=== PATIENT | male | born 1930 | race Caucasian/White ===

== ENCOUNTER 2016-04-29 15:03 | Inpatient (IN) | payer MEDICARE ==
[2016-04-29 15:35] LABS: AUTOMATED BASOPHIL 0.9 % (0-2); AUTOMATED EOSINOPHIL 3.2 % (0-5); AUTOMATED LYMPH 16.6 % (17-44); AUTOMATED MONOCYTE 11.4 % (3-10); AUTOMATED NEUTROPHIL 67.9 % (45-76); MPV 8.2 fL (7.4-10.4)
[2016-04-29 15:54] LABS: BLOOD UREA NITROGEN 13 MG/DL (9-20); CALCULATED OSMOLALITY 256 MOs/Kg (270-290); CHLORIDE 98 mEq/L (98-107); GLUCOSE 103 MG/DL (70-99); SODIUM LEVEL 133 mEq/L (137-146)
--- NOTE | 2016-04-29 16:06 | DIRPT ---
CLINICAL DATA: 85-year-old male with right hip pain after falling while attempting to sit down in a chair at his home EXAM: RIGHT HIP (WITH PELVIS) 2-3 VIEWS COMPARISON: Concurrently obtained radiographs of the right knee FINDINGS: There is no evidence of hip fracture or dislocation. There is no evidence of arthropathy or other focal bone abnormality. Numerous surgical clips present over the region of the prostate gland and bilateral pelvic sidewalls. IMPRESSION: Negative. Electronically Signed By: Palomo Sandoval M.D. On: 04/29/2016 16:04
--- NOTE | 2016-04-29 16:09 | DIRPT ---
CLINICAL DATA: Fell at home 2 days ago while trying to sit down on a chair. Right knee pain with limited range of motion. Initial encounter. EXAM: RIGHT KNEE - COMPLETE 4+ VIEW COMPARISON: None. FINDINGS: No acute fracture, dislocation, or knee joint effusion is identified. There is mild medial compartment joint space narrowing. No lytic or blastic osseous lesion is identified. Vascular calcification is noted. IMPRESSION: No acute osseous abnormality identified. Electronically Signed By: Azam Corrales M.D. On: 04/29/2016 16:07
--- NOTE | 2016-04-29 17:31 | EDPRACDOC ---
- General Chief Complaint: Hip Pain Stated Complaint: FALL Time Seen by Provider: 04/29/16 15:09 Information Source: Patient - History of Present Illness Onset: 2 days Pain Severity: Reports: Moderate Injuries/Pain Location: Reports: head, lower extremity (RIGHT HIP) Reason for Fall: Reports: unknown Loss of Consciousness: no loss of consciousness Modifying Factors: improves with: jarring, movement Associated Symptoms (Fall): Reports: denies symptoms. Denies: abdominal pain, chest pain, headache, lightheadedness, muscle spasms Allergies/Adverse Reactions: Allergies morphine Allergy (Severe, Verified 04/29/16 15:42) Agitation Home Medications: Ambulatory Orders Aspirin (Enteric Coated) [Ecotrin] 81 mg PO DAILY 04/29/16 Cholecalciferol [Vitamin D] 1,000 units PO DAILY 04/29/16 [place]-3 Fatty Acids/Fish Oil [Fish Oil 1,000 mg Softgel] 1 cap PO DAILY Omeprazole Magnesium [Prilosec Otc] 20 mg PO DAILY 04/29/16 Valsartan/Hydrochlorothiazide [Valsartan-Hctz 160-12.5 mg Tab] 1 tab PO DAILY Other History: DIFFICULTY BEARING WEIGHT ON RIGHT LEG FOR PAST 2 DAYS. PT VERY AGITATED AND ANGRY AT HOME. POINTS TO PROXIMAL THIGH REGARDING PAIN. ED Past Medical History - History Reviewed Yes Nurses notes reviewed and agree except as marked (ALL INFO FROM FAMILY) Information Unobtainable: Yes Unable to obtain information due to patient condition - Patient Medical History Neurological History: Reports: Dementia Cardiac History: Reports: Atrial Fibrillation ("FLIP / FLOPPING HEART"), Hypertension, Hypercholesterolemia Psychological History: Denies: Depression - Social Medical History Smoking Status: Never smoker ETOH: None Substance Abuse: None Lives With: Family Lives In: Home EDM Review of Systems - Review of Systems ROS Negative Except as Marked: Yes All systems reviewed and were negative except as marked ROS Unobtainable: Yes Review of systems cannot be obtained due to the patient's medical condition - Physical Exam Constitutional: Alert, Agitated, Distress, Restless Oriented to: Person, Not Oriented Last recorded Vital Signs: Last Vital Signs Temp 97.9 F 04/29/16 15:11 Pulse 104 04/29/16 15:11 Resp 18 04/29/16 15:11 BP 121/58 L 04/29/16 15:11 Pulse Ox 96 04/29/16 15:11 Oxygen Pulse Oxygen Saturation 96 O2 Device Room Air Oxygen Flow Rate Fraction of Inspired Oxygen ( FIO2) - HEENT Head: Normal Eye Exam: Normal. negative: Pale Conjunctiva Oropharynx: Normal. negative: Membranes Dry Neck: Normal. negative: Limited ROM, Lymphadenopathy, Meningeal Signs - Respiratory/Cardiovascular Respiratory: Normal - CTA Cardiovascular: Irregular. negative: Tachycardia, Diastolic murmur, Systolic murmur - GI Auscultation: Normal Palpation: Normal Tenderness: Non tender. negative: Guarding, Rebound, Rigidity Bernabe's Sign: Negative - Bladder: Normal - Musculoskeletal Back: Normal. negative: Thoracic Step-off, Lumbar Step-off, Thoracic TTP, Lumbar TTP Extremities: Other (RIGHT HIP AND PROX THIGH VERY TTP, LIMITED ROM SECONDARY TO PAIN. DISTAL FEMOR, KNEE, TIB /FIB NTTP. SKIN NL. DP AND SENSATION NL.) - Neurologic Memory Impaired: Short-term (CHRONICALLY IMPAIRED) Motor Function: Normal Mood Description: Agitated Thought: negative: Coherent - Re-evaluation 1 Re-evaluation Time: 17:20 (PT AGITATED, YELLING AND CUSSING. ATTEMPTED TO KICK ME (NEAR MISS). PROHIBITING CARE AT THIS TIME.) Re-evaluation 3 Re-evaluation Time: 20:45 (HR 130-150 AT REST, RESOLVES WITHOUT TREATMENT IN 20 MIN) - Results 04/29/16 15:25 04/29/16 15:25 WBC 8.0 xk/uL (3.8-10.8) 04/29/16 15:25 RBC 3.99 xM/uL (4.70-6.10) L 04/29/16 15:25 Hgb 13.0 g/dL (14.0-18.0) L 04/29/16 15:25 Hct 36.8 % (42-52) L 04/29/16 15:25 MCV 92 fL (80-94) 04/29/16 15:25 MCH 32.6 pg (27-32) H 04/29/16 15:25 MCHC 35.3 g/dl (33-36) 04/29/16 15:25 RDW 14.1 % (11.5-14.5) 04/29/16 15:25 Plt Count 114 xk/uL (130-400) L 04/29/16 15:25 MPV 8.2 fL (7.4-10.4) 04/29/16 15:25 Neut % (Auto) 67.9 % (45-76) 04/29/16 15:25 Lymph % (Auto) 16.6 % (17-44) L 04/29/16 15:25 [place] % (Auto) 11.4 % (3-10) H 04/29/16 15:25 Eos % (Auto) 3.2 % (0-5) 04/29/16 15:25 Baso % (Auto) 0.9 % (0-2) 04/29/16 15:25 Absolute Neuts (auto) 5.36 xk/uL (1.7-8.2) 04/29/16 15:25 Absolute Lymphs (auto) 1.28 xk/uL (0.65-4.75) 04/29/16 15:25 Sodium 133 mEq/L (137-146) L 04/29/16 15:25 Potassium 3.9 mEq/L (3.5-5.1) 04/29/16 15:25 Chloride 98 mEq/L (98-107) 04/29/16 15:25 Carbon Dioxide 26 mMOL/L (22-33) 04/29/16 15:25 Anion Gap 13 mEq/L (8-16) 04/29/16 15:25 BUN 13 MG/DL (9-20) 04/29/16 15:25 Creatinine 0.90 MG/DL (0.66-1.25) 04/29/16 15:25 Estimated GFR (MDRD) > 60 mL/min (>=60) 04/29/16 15:25 Glucose 103 MG/DL (70-99) H 04/29/16 15:25 Calculated Osmolality 256 MOs/Kg (270-290) L 04/29/16 15:25 Calcium 9.0 MG/DL (8.4-10.2) 04/29/16 15:25 Lab Results 04/29/16 04/29/16 15:25 15:25 WBC 8.0 RBC 3.99 L Hgb 13.0 L Hct 36.8 L MCV 92 MCH 32.6 H MCHC 35.3 RDW 14.1 Plt Count 114 L MPV 8.2 Neut % (Auto) 67.9 Lymph % (Auto) 16.6 L [place] % (Auto) 11.4 H Eos % (Auto) 3.2 Baso % (Auto) 0.9 Absolute Neuts (auto) 5.36 Absolute Lymphs (auto) 1.28 Sodium 133 L Potassium 3.9 Chloride 98 Carbon Dioxide 26 Anion Gap 13 BUN 13 Creatinine 0.90 Estimated GFR (MDRD) > 60 Glucose 103 H Calculated Osmolality 256 L Calcium 9.0 - EKG EKG #1 EKG Time: 21:00 -: Yes EKG interpreted by me Rate: bpm: 94 Rhythm: Afib, PVCs Block: None Hypertrophy: None ST: Normal - Diagnostic Imaging Hip Image interpreted by: Radiologist Patient Name: DAVE MARTINEZ LOC: ED : 1930 AGE: 85 Order Date:04/29/16 Date of Service: Report # [id number] Ord Physician: Cristela Green MD Exam # [id number] Emergency Physician: Cristela Green MD Exam(s): [id number] RAD/DG KNEE COMPLETE 4+V-R CLINICAL DATA: Fell at home 2 days ago while trying to sit down on a chair. Right knee pain with limited range of motion. Initial encounter. EXAM: RIGHT KNEE - COMPLETE 4+ VIEW COMPARISON: None. FINDINGS: No acute fracture, dislocation, or knee joint effusion is identified. There is mild medial compartment joint space narrowing. No lytic or blastic osseous lesion is identified. Vascular calcification is noted. IMPRESSION: No acute osseous abnormality identified. Electronically Signed By: Azam Corrales M.D. On: 04/29/2016 16:07 Electronically Signed By: Harshad Corrales MD Electronically Signed Date/Time: 609 Dictate Date/Time: 04/29/161603 Technologist: Gonzalo Veloz Transcribed By: Kimi Transcribed Date/Time: 04/29/16 1607 Patient Name: DAVE MARTINEZ LOC: ED : 1930 AGE: 85 Order Date:04/29/16 Date of Service: Report # [id number] Ord Physician: Cristela Green MD Exam # [id number] Emergency Physician: Cristela Green MD Exam(s): [id number] RAD/DG HIP COMPLETE 2+V-R CLINICAL DATA: 85-year-old male with right hip pain after falling while attempting to sit down in a chair at his home EXAM: RIGHT HIP (WITH PELVIS) 2-3 VIEWS COMPARISON: Concurrently obtained radiographs of the right knee FINDINGS: There is no evidence of hip fracture or dislocation. There is no evidence of arthropathy or other focal bone abnormality. Numerous surgical clips present over the region of the prostate gland and bilateral pelvic sidewalls. IMPRESSION: Negative. Electronically Signed By: Palomo Sandoval M.D. On: 04/29/2016 16:04 Electronically Signed By: Palomo Sandoval MD Electronically Signed Date/Time: 606 Dictate Date/Time: 04/29/16 160 Technologist: Gonzalo Veloz Transcribed By: Kimi Transcribed Date/Time: 04/29/16 1604 Patient Name: DAVE MARTINEZ LOC: ED : 1930 AGE: 85 Order Date:04/29/16 Date of Service: Report # [id number] Ord Physician: Cristela Green MD Exam # [id number] Emergency Physician: Cristela Green MD Exam(s): [id number] CT/CT EXTREM LOW W/O CM-R CLINICAL DATA: Right hip pain status post fall. EXAM: CT OF THE LOWER RIGHT EXTREMITY WITHOUT CONTRAST TECHNIQUE: Multidetector CT imaging of the right hip was performed according to the standard protocol. COMPARISON: None. FINDINGS: There is a mildly comminuted fracture of the anterior wall of the right acetabulum. There is a nondisplaced fracture of the posterior wall of the right acetabulum. There is no other fracture or dislocation. There is no lytic or sclerotic osseous lesion. The muscles are normal. No focal fluid collection or hematoma. No muscle atrophy. IMPRESSION: 1. Mildly comminuted fracture of the anterior wall of the right acetabulum. Nondisplaced fracture of the posterior wall of the right acetabulum. No hip dislocation. Electronically Signed By: Griselda Melendrez On: 04/29/2016 19:55 Electronically Signed By: Griselda Melendrez MD Electronically Signed Date/Time: Dictate Date/Time: 04/29/161942 Technologist: Tanvi Montoya Transcribed By: Kimi Transcribed Date/Time: 04/29/161954 Head Image interpreted by: Radiologist Patient Name: DAVE MARTINEZ LOC: ED : 1930 AGE: 85 Order Date:04/29/16 Date of Service: Report # [id number] Ord Physician: Cristela Green MD Exam # [id number] Emergency Physician: Cristela Green MD Exam(s): [id number] CT/CT HEAD W/O CM CLINICAL DATA: Altered mental status after fall at home 2 days ago. EXAM: CT HEAD WITHOUT CONTRAST TECHNIQUE: Contiguous axial images were obtained from the base of the skull through the vertex without intravenous contrast. COMPARISON: CT scan of September 06, 2013. FINDINGS: Bony calvarium appears intact. Moderate diffuse cortical atrophy is noted. Mild chronic ischemic white matter disease is noted. No mass effect or midline shift is noted. Ventricular size is within normal limits. There is no evidence of mass lesion, hemorrhage or acute infarction. IMPRESSION: Moderate diffuse cortical atrophy. Mild chronic ischemic white matter disease. No acute intracranial abnormality seen. Electronically Signed By: Abdon Tony Jr, M.D. On: 04/29/2016 19:45 Electronically Signed By: Abdon Tony MD Electronically Signed Date/Time: Dictate Date/Time: 04/29/161935 Technologist: Tanvi Montoya Transcribed By: Kimi Transcribed Date/Time: 04/29/161944 - Departure Disposition: Admit IP To This Hospital Final Diagnosis: Right acetabular fracture, Accidental fall, Agitation, Atrial fibrillation with RVR Instructions: Fall Prevention for Older Adults (ED), Atrial Fibrillation (ED) Education/Counseling Given To: Patient, Family Member Education/Counseling Given Regarding: Diagnosis, Treatment, Prognosis Referrals: Nilesh Leija MD [Primary Care Provider] - One Week Forms: ED Discharge Instructions Decision to Admit Time: 22:28 Decision to admit date: 04/29/16 Decision to admit: from ED - Physician Consulted Orthopedics Time Called: 20:46 Provider Called: Horace Dewitt Time Production Planning Supervisor Returned Call: 20:46 (NONOPERATIVE, TOE TOUCH WEIGHT BEARING WITH WALKER.) Hospitalist Time Called: 22:27 Provider Called: Leslie Rees Time Production Planning Supervisor Returned Call: 22:28
[2016-04-29] MEDS ORDERED: RISPERIDONE 1 MG TAB PO ONE (17:33)
[2016-04-29] MEDS ORDERED: LORAZEPAM 1 MG TAB PO ONE (17:33)
--- NOTE | 2016-04-29 19:14 | DIRPT ---
CLINICAL DATA: Recent fall with right leg pain EXAM: RIGHT FEMUR - 2 VIEW COMPARISON: None. FINDINGS: There is no evidence of fracture or other focal bone lesions. Soft tissues are unremarkable. IMPRESSION: No acute abnormality noted. Electronically Signed By: Franc Novoa M.D. On: 04/29/2016 19:11
--- NOTE | 2016-04-29 19:47 | DIRPT ---
CLINICAL DATA: Altered mental status after fall at home 2 days ago. EXAM: CT HEAD WITHOUT CONTRAST TECHNIQUE: Contiguous axial images were obtained from the base of the skull through the vertex without intravenous contrast. COMPARISON: CT scan of September 06, 2013. FINDINGS: Bony calvarium appears intact. Moderate diffuse cortical atrophy is noted. Mild chronic ischemic white matter disease is noted. No mass effect or midline shift is noted. Ventricular size is within normal limits. There is no evidence of mass lesion, hemorrhage or acute infarction. IMPRESSION: Moderate diffuse cortical atrophy. Mild chronic ischemic white matter disease. No acute intracranial abnormality seen. Electronically Signed By: Abdon Tony Jr, M.D. On: 04/29/2016 19:45
--- NOTE | 2016-04-29 19:57 | DIRPT ---
CLINICAL DATA: Right hip pain status post fall. EXAM: CT OF THE LOWER RIGHT EXTREMITY WITHOUT CONTRAST TECHNIQUE: Multidetector CT imaging of the right hip was performed according to the standard protocol. COMPARISON: None. FINDINGS: There is a mildly comminuted fracture of the anterior wall of the right acetabulum. There is a nondisplaced fracture of the posterior wall of the right acetabulum. There is no other fracture or dislocation. There is no lytic or sclerotic osseous lesion. The muscles are normal. No focal fluid collection or hematoma. No muscle atrophy. IMPRESSION: 1. Mildly comminuted fracture of the anterior wall of the right acetabulum. Nondisplaced fracture of the posterior wall of the right acetabulum. No hip dislocation. Electronically Signed By: Griselda Melendrez On: 04/29/2016 19:55
[2016-04-29] MEDS ORDERED: HYDROmorphone 1 MG INJECTION IV ONE (20:49)
[2016-04-29] MEDS ORDERED: SIMETHICONE 80 MG TAB PO PRN (22:41)
[2016-04-29] MEDS ORDERED: DOCUSATE-SENNA CONCENTRATE TAB PO PRN (22:41)
[2016-04-29] MEDS ORDERED: DEXTROSE 25 GM/50 ML PFS IV PRN (22:41)
[2016-04-29] MEDS ORDERED: ACETAMINOPHEN 650 MG SUPP PR PRN (22:41)
[2016-04-29] MEDS ORDERED: SODIUM CHLORIDE 0.9% 3 ML FLUSH FLUSH PRN (22:41)
[2016-04-29] MEDS ORDERED: BENZONATATE 100 MG PERLES PO PRN (22:41)
[2016-04-29] MEDS ORDERED: PROMETHAZINE 25 MG/ML VIAL IV PRN (22:41)
[2016-04-29] MEDS ORDERED: ONDANSETRON HCL 4 MG/2 ML VIAL IV PRN (22:41)
[2016-04-29] MEDS ORDERED: GLUCAGON 1 MG VIAL SQ PRN (22:41)
[2016-04-29] MEDS ORDERED: GLUCOSE (ORAL GEL) 15 GM TUBE PO PRN (22:41)
[2016-04-29] MEDS ORDERED: HALOPERIDOL 5 MG/ML VIAL IM PRN (22:51)
[2016-04-29] MEDS ORDERED: ACETAMINOPHEN 325 MG/TAB TABLET PO PRN (22:53)
--- NOTE | 2016-04-29 23:01 | HISTPHYS ---
- Chief Complaint s/p fall at home today, now with pain in hip, can't walk - History of Present Illness Mr Isaiah Fields is an 85 year old white man who lives at home with his family. He has some mild dementia, but is usually ambulatory and functional. He suffered a fall at home two days ago, and since then is unable to bear weight on his right leg, complaining of severe pain in his right thigh and knee. Initial evaluation did not reveal any fracture. He has become increasingly confused and agitated, and his family can not handle him at home. He has severe intractible pain and is unable to walk. A CT of his pelvis tonight revealed a comminuted fracture of the right acetabulum. Orthopedic consultation was obtained and they recommended non-surgical healing with physical therapy and placement in a rehabilitation center. He is admitted for initial control of his pain and agitation, and to begin physical therapy. - Medical History Cardiac History: Reports: Atrial Fibrillation ("FLIP / FLOPPING HEART"), Hypertension, Hypercholesterolemia Respiratory History: Reports: No Significant History GI/ History: Reports: No Significant History, Gastroesophageal Reflux Musculoskeletal History: Reports: Osteoarthritis Systemic History: Reports: No Significant History Neurological History: Reports: Dementia Psychological History: Denies: Depression, Alcoholism - Surgical History Reports: No Significant History - Medictions/Allergies Allergies morphine Allergy (Severe, Verified 04/29/16 15:42) Agitation Current Medication List: Reviewed Home Medications Aspirin (Enteric Coated) [Ecotrin] 81 mg PO DAILY 04/29/16 Cholecalciferol [Vitamin D] 1,000 units PO DAILY 04/29/16 [place]-3 Fatty Acids/Fish Oil [Fish Oil 1,000 mg Softgel] 1 cap PO DAILY Omeprazole Magnesium [Prilosec Otc] 20 mg PO DAILY 04/29/16 Valsartan/Hydrochlorothiazide [Valsartan-Hctz 160-12.5 mg Tab] 1 tab PO DAILY - Family History Reports: No Significant History - Social History Travel Outside of [place] in the Last 3 Months?: No Lives: With Family Smoking Status: Never smoker Social History: Denies: Alcohol Use - Review of Systems Yes Review of systems cannot be obtained due to the patient's medical condition (agitation/family members have departed) Constitutional: Weakness, Other (agitation & pain in right thigh) Eyes: Cataracts Ears: Hearing Loss (L ear) Nose: No Symptoms Reported Mouth: Denture, Dry Mouth, Poor Dentition Throat/Neck: No Symptoms Reported Respiratory: No Symptoms Reported, Cough Cardiovascular: No Symptoms Reported, Other (heart murmur) Gastrointestinal: No Symptoms Reported Genitourinary: No Symptoms Reported Neurological: Mood Changes, Memory Changes Musculoskeletal:: Osteoarthritis, Joint Pain (right hip and knee), Muscle Pain ( right thigh) Integumentary: No Symptoms Reported Allergic/Immunologic: No Symptoms Reported Hematologic: No Symptoms Reported Endocrine: No Symptoms Reported Psychiatric: Anxiety, Depression, Other (acute agitation/delerium) - Physical Exam Vital Signs: Initial Vitals Temperature 97.9 F 04/29/16 15:11 Pulse Rate 104 04/29/16 15:11 Respiratory Rate 18 04/29/16 15:11 Blood Pressure 121/58 L 04/29/16 15:11 Pulse Oxygen Saturation 96 04/29/16 15:11 Constitutional: Alert, Agitated, Distress (due to pain in right leg) Oriented to: Person, Place - HEENT Head: Normal Eye: Normal (PERRL; EOMI) Oropharynx: Normal, Other (dentures). negative: Drooling, Exudate, Red Tympanic Membrane: Dull TMJ: Normal Nose: No Symptoms Reported. negative: Bleeding, Congestion, Discharge, Deformity Respiratory: Normal - CTA Cardiovascular: Normal (regular rhythm and rate), Systolic murmur (harsh murmur 3/6 URSB) - GI Auscultation: Normal Palpation: Normal (soft nondistended, no mass or fluid wave) Tenderness: Non tender Bernabe's Sign: Negative Rectal Exam: Normal, Heme negative stool - Musculoskeletal Back: Normal Extremities: Pedal Edema (trace), Pedal Pulse (normal), Radial Pulse (normal), Other (tender over right hip and greater trochanter, can move R hip but painful) . negative: Clubbing, Cyanosis Spine: non-tender, normal alignment, normal inspection - Integumentary Skin: Warm, Dry, Rash (distal extremities with ischemic dermatitis) Lymphatics: Normal - Neurologic Memory Impaired: Unable to Test Motor Function: Unable to Test (patient currently sedated, previously too agitated to cooperate, but was moving all extremities) Cranial Nerve: Normal Cerebellar: Unable to Test Mood Description: Agitated Thought: Other (unable to test) Perception: Other (unable to test) - Focused CV Perfusion Exam Vital Signs: Last Vital Signs Temp 97.9 F 04/29/16 15:11 Pulse 106 04/29/16 21:40 Resp 18 04/29/16 21:40 BP 98/68 L 04/29/16 21:40 Pulse Ox 96 04/29/16 21:40 - Lab Results Laboratory Tests 04/29/16 04/29/16 04/29/16 15:25 15:25 21:29 WBC 8.0 RBC 3.99 L Hct 36.8 L Plt Count 114 L Neut % (Auto) 67.9 Lymph % (Auto) 16.6 L [place] % (Auto) 11.4 H Sodium 133 L Potassium 3.9 Chloride 98 Carbon Dioxide 26 Anion Gap 13 BUN 13 Creatinine 0.90 Estimated GFR (MDRD) > 60 Glucose 103 H Calculated Osmolality 256 L Magnesium 1.80 Troponin I 0.01 Ukp-[id number]-Umtkfnmutgk Pept 200 Urine Color Urine Clarity Urine pH Ur Specific [place] Urine Protein Urine Glucose (UA) Urine Ketones Urine Nitrite Urine RBC 04/29/16 23:30 WBC RBC Hct Plt Count Neut % (Auto) Lymph % (Auto) [place] % (Auto) Sodium Potassium Chloride Carbon Dioxide Anion Gap BUN Creatinine Estimated GFR (MDRD) Glucose Calculated Osmolality Magnesium Troponin I Zpx-L-Sdxmmmibjga Pept Urine Color Yellow Urine Clarity Clear Urine pH 6.0 Ur Specific [place] 1.015 Urine Protein 1+ H Urine Glucose (UA) Neg Urine Ketones 2+ H Urine Nitrite Neg Urine RBC 0-2 - Diagnostic Findings HEAD CT: IMPRESSION: Moderate diffuse cortical atrophy. Mild chronic ischemic white matter disease. No acute intracranial abnormality seen. Electronically Signed By: Abdon Tony Jr, M.D. On: 04/29/2016 19:45 CT HIP/PELVIS: IMPRESSION: 1. Mildly comminuted fracture of the anterior wall of the right acetabulum. Nondisplaced fracture of the posterior wall of the right acetabulum. No hip dislocation. Electronically Signed By: Griselda Melendrez On: 04/29/2016 19:55 FEMUR X-RAY: FINDINGS: There is no evidence of fracture or other focal bone lesions. Soft tissues are unremarkable. IMPRESSION: No acute abnormality noted. Electronically Signed By: Franc Novoa M.D. On: 04/29/2016 19:11 R KNEE X-RAY: FINDINGS: No acute fracture, dislocation, or knee joint effusion is identified. There is mild medial compartment joint space narrowing. No lytic or blastic osseous lesion is identified. Vascular calcification is noted. IMPRESSION: No acute osseous abnormality identified. Electronically Signed By: Azam Corrales M.D. On: 04/29/2016 16:07 PLAIN FILM X-RAY HIP/PELVIS: FINDINGS: There is no evidence of hip fracture or dislocation. There is no evidence of arthropathy or other focal bone abnormality. Numerous surgical clips present over the region of the prostate gland and bilateral pelvic sidewalls. IMPRESSION: Negative. Electronically Signed By: Palomo Sandoval M.D. On: 04/29/2016 16:04 - Assessment (1) Intractable pain R52 - PAIN, UNSPECIFIED Acute Present on Admission: Yes DUE TO RIGHT ACETABULAR FRACTURE- admit for pain control and control of agitation, then placement in rehabilitation center for phsical therapy and non- surgical recovery from fracture. (2) Right acetabular fracture S32.401A - UNSP FRACTURE OF RIGHT ACETABULUM, INIT FOR CLOS FX Acute Present on Admission: Yes Qualifiers: Encounter type: initial encounter Sublocation of acetabulum: unspecified portion of acetabulum Fracture type: closed Fracture alignment: nondisplaced Qualified Code(s): S32.401A - Unspecified fracture of right acetabulum, initial encounter for closed fracture Anterior and posterior wall involved with comminuted fracture. ACETABULAR FRACTURE- admit for pain control and control of agitation, then placement in rehabilitation center for phsical therapy and non-surgical recovery from fracture. (3) Dementia with behavioral disturbance F03.91 - UNSPECIFIED DEMENTIA WITH BEHAVIORAL DISTURBANCE Acute Present on Admission: Yes Qualifiers: Dementia type: vascular dementia Qualified Code(s): F01.51 - Vascular dementia with behavioral disturbance Will start trial of Risperdal and PRN Ativan to control agitation. (4) Atrial fibrillation with RVR I48.91 - UNSPECIFIED ATRIAL FIBRILLATION Chronic Present on Admission: Yes Heart rate ranges between 85-105. Could benefit from low dose beta neftali. Will give trial of metoprolol 25 mg BID. (5) Heart murmur, aortic I35.8 - OTHER NONRHEUMATIC AORTIC VALVE DISORDERS Acute Present on Admission: Yes Not previously diagnosed, sounds like aortic stenosis. Will order echocardiogram once patient is adequately sedated. (6) Agitation R45.1 - RESTLESSNESS AND AGITATION Acute Present on Admission: Yes Will start trial of Risperdal and PRN Ativan to control agitation.
[2016-04-30 00:03] LABS: LEUKOCYTES/URINE NEG (NEGATIVE); NITRITE/URINE NEG (NEGATIVE); RBC/URINE 0-2 (0-2); URINE OCCULT BLOOD NEG (NEG/TRACE)
[2016-04-30] MEDS: NS 1,000 ML IV SCH ×3 (00:09→21:18)
[2016-04-30] MEDS: NS 50 ML IV ONE ×2 (00:12→02:19)
[2016-04-30] MEDS: ENOXAPARIN 40 MG/0.4 ML PFS SQ SCH ×2 (02:19→17:37)
[2016-04-30] MEDS: LORAZEPAM 2 MG/ML VIAL IV PRN ×3 (06:10→19:52)
[2016-04-30] MEDS: PANTOPRAZOLE 40 MG TAB PO SCH (06:39)
[2016-04-30] MEDS: REGULAR INSULIN 100 UNITS/ML - 3 ML VIAL SQ SCH ×2 (06:39→17:34)
[2016-04-30] MEDS: SODIUM CHLORIDE 0.9% 3 ML FLUSH FLUSH SCH ×2 (06:39→17:34)
[2016-04-30 06:51] LABS: BLOOD UREA NITROGEN 17 MG/DL (9-20); CALCIUM 8.4 MG/DL (8.4-10.2); CALCULATED OSMOLALITY 260 MOs/Kg (270-290); CHLORIDE 97 mEq/L (98-107); GLUCOSE 97 MG/DL (70-99); MPV 8.5 fL (7.4-10.4); SODIUM LEVEL 134 mEq/L (137-146)
[2016-04-30 07:04] LABS: PT-INR 1.1
[2016-04-30] MEDS: METOPROLOL TARTRATE 25 MG TAB PO SCH ×2 (08:10→20:22)
[2016-04-30] MEDS: CHOLECALCIFEROL 1000 UNITS TAB PO SCH ×2 (08:10→11:06)
[2016-04-30] MEDS: VALSARTAN 160 MG TAB PO SCH (08:11)
[2016-04-30] MEDS ORDERED: HALOPERIDOL 5 MG/ML VIAL ONE (08:19)
[2016-04-30] MEDS ORDERED: [UNRECOGNIZED DRUG - OTHER] PO SCH (09:00)
[2016-04-30] MEDS ORDERED: HYDROCHLOROTHIAZIDE 12.5 MG CAP PO SCH (09:00)
[2016-04-30] MEDS ORDERED: HYDROCHLOROTHIAZIDE PO SCH (09:00)
[2016-04-30] MEDS ORDERED: Non-Formulary Medication ITEM (Omeprazole Magnesium [Prilosec Otc] 20 MG) PO SCH (09:00)
[2016-04-30] MEDS ORDERED: VALSARTAN PO SCH (09:00)
[2016-04-30] MEDS ORDERED: Vaccine Screening Complete SCH (09:00)
--- NOTE | 2016-04-30 10:14 | GENMEDPROG ---
Chief Complaint: Acetabular fracture, severe agitation Subjective Note: an elderly daughter are at the bedside. Patient was extremely agitated this morning, required Haldol and soft restraints. Currently resting comfortably, aroused from sleep. Recalls missing a chair at home, falling and hurting himself. He is disappointed to hear that he broke his hip. Notes Reviewed: Yes Events from last night noted and discussed with Clinical Staff Current Medication List: Reviewed DVT Prophylaxis: Yes - Physical Examination Vital Signs and I&O: Last Vital Signs Temp 97.8 F 04/30/16 04:02 Pulse 92 04/30/16 08:00 Resp 20 04/30/16 07:59 BP 141/63 04/30/16 07:59 Pulse Ox 95 04/30/16 04:02 Oxygen Pulse Oxygen Saturation 95 O2 Device Room Air Oxygen Flow Rate Fraction of Inspired Oxygen ( FIO2) Intake & Output 04/28/16 04/29/16 04/30/16 05/01/16 06:59 06:59 06:59 06:59 Output Total 400 Balance -400 Patient's weight 80.24 kg General: Alert, No acute distress HEENT: EOMI (Sclera white) Neck: Normal Trachea alignment, Normal inspection Lymphatics: Normal Respiratory: Normal - CTA Cardiovascular: Regular rate, No Gallops,Rubs/Murmurs GI: Normal bowel sounds, Soft, Non tender (non distended) Lab/DI/Studies Reviewed: Laboratory Tests 04/30/16 04/30/16 05:50 05:50 Hgb 11.9 L Sodium 134 L BUN 17 Creatinine 0.80 - Assessment (1) Accidental fall Acute W19.XXXA - UNSPECIFIED FALL, INITIAL ENCOUNTER Comment/Plan: Patient has reportedly been having several falls at home, he is difficult to manage at home due to his dementia. Per his daughter, they have been having a lot of trouble with him at home, he has been refusing to go to the doctor. (2) Agitation Acute R45.1 - RESTLESSNESS AND AGITATION Comment/Plan: Will start trial of Risperdal and PRN Ativan to control agitation. Received IM Haldol in soft restraints this morning. He is now more calmed. (3) Dementia with behavioral disturbance Acute F03.91 - UNSPECIFIED DEMENTIA WITH BEHAVIORAL DISTURBANCE Qualifiers: Dementia type: vascular dementia Qualified Code(s): F01.51 - Vascular dementia with behavioral disturbance Comment/Plan: Will start trial of Risperdal and PRN Ativan to control agitation. (4) Heart murmur, aortic Acute I35.8 - OTHER NONRHEUMATIC AORTIC VALVE DISORDERS Comment/Plan: Not previously diagnosed, sounds like aortic stenosis. Will order echocardiogram once patient is adequately sedated. (5) Right acetabular fracture Acute S32.401A - UNSP FRACTURE OF RIGHT ACETABULUM, INIT FOR CLOS FX Qualifiers: Encounter type: initial encounter Sublocation of acetabulum: unspecified portion of acetabulum Fracture type: closed Fracture alignment: nondisplaced Qualified Code(s): S32.401A - Unspecified fracture of right acetabulum, initial encounter for closed fracture Comment/Plan: Anterior and posterior wall involved with comminuted fracture. ACETABULAR FRACTURE- admit for pain control and control of agitation, then placement in rehabilitation center for phsical therapy and non-surgical recovery from fracture. (6) Atrial fibrillation with RVR Chronic I48.91 - UNSPECIFIED ATRIAL FIBRILLATION Comment/Plan: Heart rate ranges between 85-105. Could benefit from low dose beta neftali. Will give trial of metoprolol 25 mg BID. - Plan Will need PT and OT consultations, he will need subacute rehabilitation placement, verses long-term long-term placement. His is elderly, and I do not think it is safe for either of them if he is to return home given his severe behavioral disturbances and dementia.
[2016-04-30] MEDS: OMEGA-3-ACID ETHYL ESTERS 1000 MG CAP PO SCH (11:06)
[2016-04-30] MEDS: RISPERIDONE 1 MG TAB PO SCH (20:22)
[2016-04-30] MEDS: HYDROmorphone 1 MG INJECTION IV PRN (21:19)
[2016-05-01] MEDS: NS 1,000 ML IV SCH ×3 (02:39→21:29)
[2016-05-01] MEDS: PANTOPRAZOLE 40 MG TAB PO SCH (05:36)
[2016-05-01] MEDS: SODIUM CHLORIDE 0.9% 3 ML FLUSH FLUSH SCH ×2 (05:57→16:25)
[2016-05-01] MEDS: REGULAR INSULIN 100 UNITS/ML - 3 ML VIAL SQ SCH ×2 (05:58→16:29)
[2016-05-01] MEDS: METOPROLOL TARTRATE 25 MG TAB PO SCH ×2 (07:30→21:29)
[2016-05-01] MEDS: VALSARTAN 160 MG TAB PO SCH (07:30)
--- NOTE | 2016-05-01 09:05 | GENMEDPROG ---
Chief Complaint: Acetabular fracture Subjective Note: Intermittent periods of agitation and confusion. Currently resting comfortably in his bed. Denies any pain or discomfort. Able to tell me who he is, where he is and why. However, he tells me that he wants me to move the TV from next to his ear, and when I go to move his IV line, he tells me it is a laser. DVT Prophylaxis: Yes - Physical Examination Vital Signs and I&O: Last Vital Signs Temp 98.5 F 05/01/16 07:35 Pulse 122 H 05/01/16 07:35 Resp 18 05/01/16 07:35 BP 158/92 05/01/16 07:35 Pulse Ox 98 05/01/16 08:00 Oxygen Pulse Oxygen Saturation 98 O2 Device Room Air Oxygen Flow Rate Fraction of Inspired Oxygen ( FIO2) Intake & Output 04/29/16 04/30/16 05/01/16 05/02/16 06:59 06:59 06:59 06:59 Intake Total 3294 Output Total 400 1525 Balance -400 1769 Patient's weight 80.24 kg 82.1 kg General: Alert, Oriented x3, No acute distress HEENT: EOMI (Sclera white) Neck: Normal Trachea alignment, Normal inspection Lymphatics: Normal Respiratory: Normal - CTA Cardiovascular: Regular rate, No Gallops,Rubs/Murmurs GI: Normal bowel sounds, Soft, Non tender (non distended) Lab/DI/Studies Reviewed: Laboratory Tests 05/01/16 04:55 Hgb 12.3 L - Assessment (1) Accidental fall Acute W19.XXXA - UNSPECIFIED FALL, INITIAL ENCOUNTER Comment/Plan: Patient has reportedly been having several falls at home, he is difficult to manage at home due to his dementia. Per his daughter, they have been having a lot of trouble with him at home, he has been refusing to go to the doctor. Explain to the daughter yesterday after lengthy discussion that patient will most likely need to go to rehabilitation, if not a residential long-term facility due to his severe dementia and history of falls at home. This is regardless of his rehab status related to his fracture. (2) Agitation Acute R45.1 - RESTLESSNESS AND AGITATION Comment/Plan: Will start trial of Risperdal and PRN Ativan to control agitation. Received IM Haldol in soft restraints this morning. He is now more calmed. (3) Dementia with behavioral disturbance Acute F03.91 - UNSPECIFIED DEMENTIA WITH BEHAVIORAL DISTURBANCE Qualifiers: Dementia type: vascular dementia Qualified Code(s): F01.51 - Vascular dementia with behavioral disturbance Comment/Plan: Will start trial of Risperdal and PRN Ativan to control agitation. (4) Heart murmur, aortic Acute I35.8 - OTHER NONRHEUMATIC AORTIC VALVE DISORDERS Comment/Plan: Not previously diagnosed, sounds like aortic stenosis. Will order echocardiogram once patient is adequately sedated. (5) Right acetabular fracture Acute S32.401A - UNSP FRACTURE OF RIGHT ACETABULUM, INIT FOR CLOS FX Qualifiers: Encounter type: initial encounter Sublocation of acetabulum: unspecified portion of acetabulum Fracture type: closed Fracture alignment: nondisplaced Qualified Code(s): S32.401A - Unspecified fracture of right acetabulum, initial encounter for closed fracture Comment/Plan: Anterior and posterior wall involved with comminuted fracture. ACETABULAR FRACTURE- admit for pain control and control of agitation, then placement in rehabilitation center for phsical therapy and non-surgical recovery from fracture. (6) Atrial fibrillation with RVR Chronic I48.91 - UNSPECIFIED ATRIAL FIBRILLATION Comment/Plan: Heart rate ranges between 85-105. Could benefit from low dose beta neftali. Will give trial of metoprolol 25 mg BID. Case Care Discussed with: Patient Total Time: 41
[2016-05-01] MEDS: CHOLECALCIFEROL 1000 UNITS TAB PO SCH (11:26)
[2016-05-01] MEDS: OMEGA-3-ACID ETHYL ESTERS 1000 MG CAP PO SCH (11:26)
--- NOTE | 2016-05-01 12:30 | CAPUECHO ---
INDICATION: MURMUR HEIGHT: 182.9 cm (6 ft 0.0 in) WEIGHT: 82.5 kg (182.0 lbs) BP: 150/86 BSA: 2.665143 m MEASUREMENTS DOPPLER MV E Yemi: 0.00 m/s MV A Yemi: 1.15 m/s AV Vmax: 0.85 m/s FINDINGS ------- Procedure:Limited echo imges were obtained and reviewed. ECG rhythm:Sinus rhythm. Study quality:This was a technically difficult study with suboptimal views. Left Ventricle:LV size, wall thickness and systolic function are normal, with an EF greater than 55% . Right Ventricle:The right ventricle is normal in size and function. Left Atrium:The left atrium is normal in size. Right Atrium:The right atrium is normal in size and function. Aortic Valve:The aortic valve is trileaflet, and appears structurally normal. No aortic stenosis or regurgitation. Mitral Valve:Normal appearing mitral valve. No mitral regurgitation. Tricuspid Valve:The tricuspid valve appears structurally normal. No regurgitation noted Pulmonic Valve:The pulmonic valve is normal. There is no pulmonic regurgitation present. Aorta:The aortic root, ascending aorta and aortic arch appear normal. IVC:Normal inferior vena cava with normal inspiratory collapse. Pericardium:There is no pericardial effusion. CONCLUSIONS 1. This was a technically difficult study with suboptimal views. 2. LV size, wall thickness and systolic function are normal, with an EF greater than 55%. Electronically Signed By: Dread Cleaning MD -- Electronically Signed On: 12:30:29
[2016-05-01] MEDS: HYDROmorphone 1 MG INJECTION IV PRN (15:05)
[2016-05-01] MEDS: LORAZEPAM 2 MG/ML VIAL IV PRN ×2 (15:05→23:10)
[2016-05-01] MEDS: ENOXAPARIN 40 MG/0.4 ML PFS SQ SCH (16:31)
[2016-05-01] MEDS ORDERED: KETOROLAC TROMETH 15 MG/1 ML VIAL IV PRN (16:45)
--- NOTE | 2016-05-01 17:34 | PCM.ORTHCO ---
Consultation Date: 05/01/16 Automobile Repossessor: Horace Dewitt Reason for Consult: Fracture - History of Present Illness Mr Fields is an 85-year-old male who presented to [facility] ER after a fall at home. He is I would bear weight due to pain in the right lower extremity and right hip. This was evaluated in the ER and x-rays were taken. Plain x-rays were negative for fracture. CT scan was then performed demonstrating nondisplaced fractures through the anterior and posterior nieto of the acetabulum. No femoral head or neck fracture identified. Patient also is with significant agitation/symptoms of dementia. He was admitted to the hospitalist service for pain control and placement purposes. Chief Complaint: s/p fall at home today, now with pain in hip, can't walk - Past Medical and Surgical History Cardiac History: Reports: No Significant History, Hypertension Respiratory History: Reports: No Significant History GI/ History: Reports: No Significant History Systemic History: Reports: No Significant History Musculoskeletal History: Reports: No Significant History, Arthritis Psychological History: Reports: No Significant History, Anxiety. Denies: Depression Neurological History: Reports: No Significant History, Dementia Past Surgical History: Reports: No Significant History Allergies morphine Allergy (Severe, Verified 04/29/16 15:42) Agitation Home Medications Aspirin (Enteric Coated) [Ecotrin] 81 mg PO DAILY 04/29/16 Cholecalciferol [Vitamin D] 1,000 units PO DAILY 04/29/16 Townsend-3 Fatty Acids/Fish Oil [Fish Oil 1,000 mg Softgel] 1 cap PO DAILY Omeprazole Magnesium [Prilosec Otc] 20 mg PO DAILY 04/29/16 Valsartan/Hydrochlorothiazide [Valsartan-Hctz 160-12.5 mg Tab] 1 tab PO DAILY - Social History Travel Outside of [place] in the Last 3 Months?: No Smoking Status: Never smoker - Family History Reports: No Significant History - Review of Systems Yes Review of systems cannot be obtained due to the patient's medical condition (Dementia/agitation) - Physical Exam Vital Signs: Initial Vitals Temperature 97.9 F 04/29/16 15:11 Pulse Rate 104 04/29/16 15:11 Respiratory Rate 18 04/29/16 15:11 Blood Pressure 121/58 L 04/29/16 15:11 Pulse Oxygen Saturation 96 04/29/16 15:11 Constitutional: Agitated Oriented to: Not Oriented - Musculoskeletal Extremities: Other (Examination of the patient's right lower extremity is normal in appearance. No effusion or ecchymosis. He does have reproducible pain with log roll testing and attempts at passive range of motion of the right hip in the groin area. It is significant dementia and confusion patient is unable to elicit the site of his pain. No deformity or rotational, are otherwise is noted. He is able to actively flex and extend the knee and the right ankle. Subjective sensation is intact in all dermatomes of the right foot. He has palpable dorsalis pedis and posterior tibial pulses distally. Other remaining bony prominences of the lower and upper extremities are palpated without tenderness, step-off or deformity.) - Diagnostic Findings CLINICAL DATA: Right hip pain status post fall. EXAM: CT OF THE LOWER RIGHT EXTREMITY WITHOUT CONTRAST TECHNIQUE: Multidetector CT imaging of the right hip was performed according to the standard protocol. COMPARISON: None. FINDINGS: There is a mildly comminuted fracture of the anterior wall of the right acetabulum. There is a nondisplaced fracture of the posterior wall of the right acetabulum. There is no other fracture or dislocation. There is no lytic or sclerotic osseous lesion. The muscles are normal. No focal fluid collection or hematoma. No muscle atrophy. IMPRESSION: 1. Mildly comminuted fracture of the anterior wall of the right acetabulum. Nondisplaced fracture of the posterior wall of the right acetabulum. No hip dislocation. Electronically Signed By: Griselda Melendrez On: 04/29/2016 19:55 - Assessment/Plan (1) Right acetabular fracture S32.401A - UNSP FRACTURE OF RIGHT ACETABULUM, INIT FOR CLOS FX Acute initial encounter unspecified portion of acetabulum closed nondisplaced S32.401A - Unspecified fracture of right acetabulum, initial encounter for closed fracture Plan: 1. nondisplaced fractures right acetabulum of the anterior and posterior nieto -I discussed the patient's imaging findings with his daughter and family members at the bedside today. I recommended nonoperative treatment. Recommend protected weightbearing with a walker/toe-touch weightbearing right lower extremity for a period of 6 weeks. -Pain control. -Recommend snf facility placement -Recommend outpatient followup
[2016-05-01] MEDS: RISPERIDONE 1 MG TAB PO SCH (21:29)
[2016-05-02] MEDS: SODIUM CHLORIDE 0.9% 3 ML FLUSH FLUSH SCH ×2 (05:25→17:24)
[2016-05-02] MEDS: PANTOPRAZOLE 40 MG TAB PO SCH (05:25)
[2016-05-02] MEDS: REGULAR INSULIN 100 UNITS/ML - 3 ML VIAL SQ SCH ×2 (05:34→16:05)
[2016-05-02] MEDS: NS 1,000 ML IV SCH ×2 (08:16→17:24)
[2016-05-02] MEDS: METOPROLOL TARTRATE 25 MG TAB PO SCH ×2 (08:17→20:57)
[2016-05-02] MEDS: VALSARTAN 160 MG TAB PO SCH (08:17)
[2016-05-02] MEDS: CHOLECALCIFEROL 1000 UNITS TAB PO SCH (12:44)
[2016-05-02] MEDS: OMEGA-3-ACID ETHYL ESTERS 1000 MG CAP PO SCH (12:44)
--- NOTE | 2016-05-02 13:39 | GENMEDPROG ---
Chief Complaint: Acetabular fracture Subjective Note: Patient is resting comfortably this morning, his mental status is normal. Has several family members at the bedside. He works this morning with physical therapy, and did decently well. Notes Reviewed: Yes Events from last night noted and discussed with Clinical Staff Current Medication List: Reviewed DVT Prophylaxis: Yes - Physical Examination Vital Signs and I&O: Last Vital Signs Temp 98.7 F 05/02/16 09:41 Pulse 90 05/02/16 09:41 Resp 20 05/02/16 09:41 BP 147/67 05/02/16 09:41 Pulse Ox 96 05/02/16 09:41 Oxygen Pulse Oxygen Saturation 96 O2 Device Room Air Oxygen Flow Rate Fraction of Inspired Oxygen ( FIO2) Intake & Output 04/30/16 05/01/16 05/02/16 05/03/16 06:59 06:59 06:59 06:59 Intake Total 3294 2929 480 Output Total 400 1525 1750 50 Balance -400 1769 1179 430 Patient's weight 80.24 kg 82.1 kg 82.582 kg General: Alert, Oriented x3, No acute distress HEENT: EOMI (Sclera white) Neck: Normal Trachea alignment, Normal inspection Lymphatics: Normal Respiratory: Normal - CTA Cardiovascular: Regular rate, No Gallops,Rubs/Murmurs GI: Normal bowel sounds, Soft, Non tender (non distended) Lab/DI/Studies Reviewed: Laboratory Tests 05/02/16 07:24 Hgb 11.2 L Hct 32.2 L - Assessment (1) Accidental fall Acute W19.XXXA - UNSPECIFIED FALL, INITIAL ENCOUNTER Comment/Plan: Patient has reportedly been having several falls at home, he is difficult to manage at home due to his dementia. Per his daughter, they have been having a lot of trouble with him at home, he has been refusing to go to the doctor. Explain to the daughter 2 days ago after lengthy discussion that patient will most likely need to go to rehabilitation, if not a residential long-term facility due to his severe dementia and history of falls at home. This is regardless of his rehab status related to his fracture. Family strongly prefers [facility]. (2) Agitation Acute R45.1 - RESTLESSNESS AND AGITATION Comment/Plan: Will start trial of Risperdal and PRN Ativan to control agitation. Received IM Haldol in soft restraints as of yesterday. This morning, he is more , and out of restraints. (3) Dementia with behavioral disturbance Acute F03.91 - UNSPECIFIED DEMENTIA WITH BEHAVIORAL DISTURBANCE Qualifiers: Dementia type: vascular dementia Qualified Code(s): F01.51 - Vascular dementia with behavioral disturbance Comment/Plan: Will start trial of Risperdal and PRN Ativan to control agitation. (4) Heart murmur, aortic Acute I35.8 - OTHER NONRHEUMATIC AORTIC VALVE DISORDERS Comment/Plan: Not previously diagnosed, sounds like aortic stenosis. Will order echocardiogram once patient is adequately sedated. (5) Right acetabular fracture Acute S32.401A - UNSP FRACTURE OF RIGHT ACETABULUM, INIT FOR CLOS FX Qualifiers: Encounter type: initial encounter Sublocation of acetabulum: unspecified portion of acetabulum Fracture type: closed Fracture alignment: nondisplaced Qualified Code(s): S32.401A - Unspecified fracture of right acetabulum, initial encounter for closed fracture Comment/Plan: Anterior and posterior wall involved with comminuted fracture. ACETABULAR FRACTURE- admit for pain control and control of agitation, then placement in rehabilitation center for phsical therapy and non-surgical recovery from fracture. (6) Atrial fibrillation with RVR Chronic I48.91 - UNSPECIFIED ATRIAL FIBRILLATION Comment/Plan: Heart rate ranges between 85-105. Could benefit from low dose beta neftali. Will give trial of metoprolol 25 mg BID.
[2016-05-02] MEDS: ENOXAPARIN 40 MG/0.4 ML PFS SQ SCH (17:24)
[2016-05-02] MEDS: RISPERIDONE 1 MG TAB PO SCH (20:58)
[2016-05-02] MEDS: TEMAZEPAM 15 MG CAP PO PRN (23:28)
[2016-05-02] MEDS: ACETAMINOPHEN 325 MG/TAB TABLET PO PRN (23:28)
[2016-05-03] MEDS: NS 1,000 ML IV SCH ×4 (02:13→23:15)
[2016-05-03] MEDS: LORAZEPAM 2 MG/ML VIAL IV PRN ×2 (03:40→22:53)
[2016-05-03] MEDS: PANTOPRAZOLE 40 MG TAB PO SCH (06:09)
[2016-05-03] MEDS: SODIUM CHLORIDE 0.9% 3 ML FLUSH FLUSH SCH ×2 (06:09→17:56)
[2016-05-03] MEDS: REGULAR INSULIN 100 UNITS/ML - 3 ML VIAL SQ SCH ×2 (06:28→17:55)
[2016-05-03] MEDS: METOPROLOL TARTRATE 25 MG TAB PO SCH ×2 (09:33→20:24)
[2016-05-03] MEDS: VALSARTAN 160 MG TAB PO SCH (09:33)
[2016-05-03] MEDS: ACETAMINOPHEN 325 MG/TAB TABLET PO PRN (11:55)
[2016-05-03] MEDS: CHOLECALCIFEROL 1000 UNITS TAB PO SCH (11:55)
[2016-05-03] MEDS: OMEGA-3-ACID ETHYL ESTERS 1000 MG CAP PO SCH (11:55)
[2016-05-03] MEDS ORDERED: CHAPSTICK LIP BALM ONE (12:22)
[2016-05-03] MEDS: ENOXAPARIN 40 MG/0.4 ML PFS SQ SCH (17:55)
[2016-05-03] MEDS: RISPERIDONE 1 MG TAB PO SCH (20:25)
--- NOTE | 2016-05-03 21:41 | GENMEDPROG ---
Chief Complaint: intractible pain, acetabular fracture, dementia, atrial fib Subjective Note: Patient is doing fairly well, still has occasional emotional outbursts, but less frequently. Can be consoled, and not combative as before. Notes Reviewed: Yes Events from last night noted and discussed with Clinical Staff Currently: Reports: Other (frustrated and doesn't understand/remember non-weight -bearing status.). Denies: Ambulating DVT Prophylaxis: Yes - Physical Examination Vital Signs and I&O: Last Vital Signs Temp 98 F 05/03/16 20:39 Pulse 115 05/03/16 20:39 Resp 18 05/03/16 20:39 BP 188/89 H 05/03/16 20:39 Pulse Ox 95 05/03/16 20:39 Oxygen Pulse Oxygen Saturation 95 O2 Device Room Air Oxygen Flow Rate Fraction of Inspired Oxygen ( FIO2) Intake & Output 04/30/16 05/01/16 05/02/16 05/03/16 23:59 23:59 23:59 23:59 Intake Total 2226 2288 3673 2774 Output Total 1700 4601 435 9385 Balance 922 422 7069 424 Patient's weight 80.24 kg 82.1 kg 82.582 kg 83.178 kg General: Alert, Oriented x3, No acute distress HEENT: Normal, PERRLA, EOMI (Sclera white), Anicteric Sclera, Mucous membr. moist/pink Neck: Normal Trachea alignment, Normal inspection Lymphatics: Normal Respiratory: Normal - CTA Cardiovascular: Regular rate, No Gallops,Rubs/Murmurs GI: Normal bowel sounds, Soft, Non tender (non distended) Extremities/Musculoskeletal: DJD, FROM Skin: Warm,Dry and Intact, No breakdown Neurological: Normal speech, Normal tone, Cranial nerves 3-12 NL Psych/Mental Status: Cooperative, Confused, Disoriented, Drowsy - Assessment (1) Intractable pain Acute R52 - PAIN, UNSPECIFIED Comment/Plan: DUE TO RIGHT ACETABULAR FRACTURE - admitted for pain control and control of agitation, then placement in rehabilitation center for physical therapy and non-surgical recovery from fracture. (2) Right acetabular fracture Acute S32.401A - UNSP FRACTURE OF RIGHT ACETABULUM, INIT FOR CLOS FX Qualifiers: Encounter type: initial encounter Sublocation of acetabulum: unspecified portion of acetabulum Fracture type: closed Fracture alignment: nondisplaced Qualified Code(s): S32.401A - Unspecified fracture of right acetabulum, initial encounter for closed fracture Comment/Plan: Anterior and posterior wall involved with comminuted fracture. ACETABULAR FRACTURE- continue pain control and control of agitation, then continue physical therapy and non-surgical recovery from fracture. (3) Dementia with behavioral disturbance Acute F03.91 - UNSPECIFIED DEMENTIA WITH BEHAVIORAL DISTURBANCE Qualifiers: Dementia type: vascular dementia Qualified Code(s): F01.51 - Vascular dementia with behavioral disturbance Comment/Plan: Using Risperdal and PRN Ativan to control agitation. (4) Atrial fibrillation with RVR Chronic I48.91 - UNSPECIFIED ATRIAL FIBRILLATION Comment/Plan: Tolerating metoprolol 25 mg BID. (5) Heart murmur, aortic Acute I35.8 - OTHER NONRHEUMATIC AORTIC VALVE DISORDERS Comment/Plan: Not previously diagnosed, sounds like aortic stenosis. Echocardiogram was done but suboptimal results were unable to explain patient's rather loud heart murmur. Aortic valve appeared to be normal on recent echo - no other valvular abnormalities were seen either. (6) Agitation Acute R45.1 - RESTLESSNESS AND AGITATION Comment/Plan: Tolerating Risperdal and PRN Ativan to control agitation. Received occasional IM Haldol and soft restraints. This morning, he is more alert, and out of restraints. Case Care Discussed with: Family, Nursing Staff, Resource Management Education/Counseling Given To: Family Member Education/Counseling Given Regarding: Diagnosis, Treatment, Prognosis Critical Care: No Couseling Time (>50% in counseling/coordination): Yes Code: 66519 (12+)
[2016-05-04] MEDS: NS 1,000 ML IV SCH ×3 (00:20→21:03)
[2016-05-04] MEDS: LORAZEPAM 2 MG/ML VIAL IV PRN ×3 (02:59→19:27)
[2016-05-04] MEDS ORDERED: DILTIAZEM 25 MG/5 ML VIAL IV ONE (03:13)
[2016-05-04] MEDS: SODIUM CHLORIDE 0.9% 3 ML FLUSH FLUSH SCH ×2 (05:16→18:08)
[2016-05-04] MEDS: PANTOPRAZOLE 40 MG TAB PO SCH (05:16)
[2016-05-04] MEDS: REGULAR INSULIN 100 UNITS/ML - 3 ML VIAL SQ SCH ×2 (05:46→18:08)
--- NOTE | 2016-05-04 09:53 | GENMEDPROG ---
Chief Complaint: pelvic/acetabular fracture, pain in R hip, dementia, atrial fib, Currently: Reports: Other (frustrated and doesn't understand/remember non-weight -bearing status.). Denies: Ambulating DVT Prophylaxis: Yes - Physical Examination Vital Signs and I&O: Last Vital Signs Temp 97.5 F 05/04/16 03:00 Pulse 101 05/04/16 05:41 Resp 20 05/04/16 05:41 BP 138/82 05/04/16 05:41 Pulse Ox 93 05/04/16 05:41 Oxygen Pulse Oxygen Saturation 93 O2 Device Room Air Oxygen Flow Rate Fraction of Inspired Oxygen ( FIO2) Intake & Output 05/01/16 05/02/16 05/03/16 05/04/16 23:59 23:59 23:59 23:59 Intake Total 2288 3673 2774 1103 Output Total 1888 959 0751 1300 Balance 813 2923 -76 -197 Patient's weight 82.1 kg 82.582 kg 83.178 kg 81.788 kg General: Alert, Oriented x3, No acute distress HEENT: Normal, PERRLA, EOMI (Sclera white), Anicteric Sclera, Mucous membr. moist/pink Neck: Normal Trachea alignment, Normal inspection Lymphatics: Normal Respiratory: Normal - CTA Cardiovascular: Regular rate, No Gallops,Rubs/Murmurs GI: Normal bowel sounds, Soft, Non tender (non distended) Extremities/Musculoskeletal: DJD, FROM Skin: Warm,Dry and Intact, No breakdown Neurological: Normal speech, Normal tone, Cranial nerves 3-12 NL Psych/Mental Status: Cooperative, Confused, Disoriented, Drowsy - Assessment (1) Right acetabular fracture Acute S32.401A - UNSP FRACTURE OF RIGHT ACETABULUM, INIT FOR CLOS FX Qualifiers: Encounter type: initial encounter Sublocation of acetabulum: unspecified portion of acetabulum Fracture type: closed Fracture alignment: nondisplaced Qualified Code(s): S32.401A - Unspecified fracture of right acetabulum, initial encounter for closed fracture Comment/Plan: Anterior and posterior wall involved with comminuted fracture. ACETABULAR FRACTURE- continue pain control and control of agitation, then continue physical therapy and non-surgical recovery from fracture. (2) Intractable pain Acute R52 - PAIN, UNSPECIFIED Comment/Plan: DUE TO RIGHT ACETABULAR FRACTURE - admitted for pain control and control of agitation, then placement in rehabilitation center for physical therapy and non-surgical recovery from fracture. (3) Dementia with behavioral disturbance Acute F03.91 - UNSPECIFIED DEMENTIA WITH BEHAVIORAL DISTURBANCE Qualifiers: Dementia type: vascular dementia Qualified Code(s): F01.51 - Vascular dementia with behavioral disturbance Comment/Plan: Using Risperdal and PRN Ativan to control agitation. (4) Atrial fibrillation with RVR Chronic I48.91 - UNSPECIFIED ATRIAL FIBRILLATION Comment/Plan: Tolerating metoprolol . (5) HTN (hypertension) Acute I10 - ESSENTIAL (PRIMARY) HYPERTENSION Qualifiers: Hypertension type: essential hypertension Qualified Code(s): I10 - Essential (primary) hypertension Comment/Plan: Will increase dose of metoprolol to 50 mg BID to help control BP better. (6) Heart murmur, aortic Acute I35.8 - OTHER NONRHEUMATIC AORTIC VALVE DISORDERS Comment/Plan: Not previously diagnosed, sounds like aortic stenosis. Echocardiogram was done but suboptimal results were unable to explain patient's rather loud heart murmur. Aortic valve appeared to be normal on recent echo - no other valvular abnormalities were seen either. (7) Agitation Acute R45.1 - RESTLESSNESS AND AGITATION Comment/Plan: Tolerating Risperdal and PRN Ativan to control agitation. Received occasional IM Haldol and soft restraints. This morning, he is more alert, and out of restraints.
[2016-05-04] MEDS: VALSARTAN 160 MG TAB PO SCH (10:01)
[2016-05-04] MEDS: METOPROLOL TARTRATE 25 MG TAB PO SCH (10:07)
[2016-05-04] MEDS: CHOLECALCIFEROL 1000 UNITS TAB PO SCH (11:31)
[2016-05-04] MEDS: OMEGA-3-ACID ETHYL ESTERS 1000 MG CAP PO SCH (11:31)
--- NOTE | 2016-05-04 12:18 | CAPUEKG ---
[place], [place] Test Date: 2016-05-04 Pat Name: DAVE MARTINEZ Department: Room: 381 Gender: Male Operations Expert: JUSTICE : Requested By: Order Number: Reading MD: Shilo Lees MD Measurements Intervals [place] Rate: 125 P: [place]: QRS: 18 QRSD: 78 T: 27 QT: 332 QTc: 479 Interpretive Statements Atrial fibrillation with rapid ventricular response with premature ventricular or aberrantly conducted complexes Nonspecific ST and T wave abnormality, probably digitalis effect Abnormal ECG Electronically Signed On 05-04-16 12:17:25 EST by Shilo Lees MD <[id number]> [id number]
[2016-05-04] MEDS: ENOXAPARIN 40 MG/0.4 ML PFS SQ SCH (18:32)
[2016-05-04] MEDS: RISPERIDONE 1 MG TAB PO SCH (19:23)
[2016-05-04] MEDS: METOPROLOL TARTRATE 50 MG TAB PO SCH (19:24)
[2016-05-05] MEDS: NS 1,000 ML IV SCH ×2 (01:56→19:37)
[2016-05-05] MEDS: SODIUM CHLORIDE 0.9% 3 ML FLUSH FLUSH SCH ×2 (05:29→17:26)
[2016-05-05] MEDS: PANTOPRAZOLE 40 MG TAB PO SCH (05:29)
[2016-05-05] MEDS: REGULAR INSULIN 100 UNITS/ML - 3 ML VIAL SQ SCH ×2 (06:03→17:26)
[2016-05-05] MEDS: VALSARTAN 160 MG TAB PO SCH (08:35)
[2016-05-05] MEDS: METOPROLOL TARTRATE 50 MG TAB PO SCH ×2 (08:36→19:37)
[2016-05-05] MEDS: OMEGA-3-ACID ETHYL ESTERS 1000 MG CAP PO SCH (12:34)
[2016-05-05] MEDS: CHOLECALCIFEROL 1000 UNITS TAB PO SCH (12:34)
--- NOTE | 2016-05-05 16:47 | GENMEDPROG ---
Currently: Reports: Other (frustrated and doesn't understand/remember non-weight -bearing status.). Denies: Ambulating DVT Prophylaxis: Yes - Physical Examination Vital Signs and I&O: Last Vital Signs Temp 98.9 F 05/05/16 14:00 Pulse 108 05/05/16 14:00 Resp 19 05/05/16 14:00 BP 153/77 05/05/16 14:00 Pulse Ox 95 05/05/16 14:00 Oxygen Pulse Oxygen Saturation 95 O2 Device Room Air Oxygen Flow Rate Fraction of Inspired Oxygen ( FIO2) Intake & Output 05/02/16 05/03/16 05/04/16 05/05/16 23:59 23:59 23:59 23:59 Intake Total 3673 2774 2833 2506 Output Total 750 2850 2750 450 Balance 2923 -76 83 2056 Patient's weight 82.582 kg 83.178 kg 81.788 kg 82.1 kg General: Alert, Oriented x3, No acute distress HEENT: Normal, PERRLA, EOMI (Sclera white), Anicteric Sclera, Mucous membr. moist/pink Neck: Normal Trachea alignment, Normal inspection Lymphatics: Normal Respiratory: Normal - CTA Cardiovascular: Regular rate, No Gallops,Rubs/Murmurs GI: Normal bowel sounds, Soft, Non tender (non distended) Extremities/Musculoskeletal: DJD, FROM Skin: Warm,Dry and Intact, No breakdown Neurological: Normal speech, Normal tone, Cranial nerves 3-12 NL Psych/Mental Status: Cooperative, Confused, Disoriented, Drowsy - Assessment (1) Right acetabular fracture Acute S32.401A - UNSP FRACTURE OF RIGHT ACETABULUM, INIT FOR CLOS FX Qualifiers: Encounter type: initial encounter Sublocation of acetabulum: unspecified portion of acetabulum Fracture type: closed Fracture alignment: nondisplaced Qualified Code(s): S32.401A - Unspecified fracture of right acetabulum, initial encounter for closed fracture Comment/Plan: Anterior and posterior wall involved with comminuted fracture. ACETABULAR FRACTURE- continue pain control and control of agitation, then continue physical therapy and non-surgical recovery from fracture. (2) Intractable pain Acute R52 - PAIN, UNSPECIFIED Comment/Plan: DUE TO RIGHT ACETABULAR FRACTURE - admitted for pain control and control of agitation, then placement in rehabilitation center for physical therapy and non-surgical recovery from fracture. (3) Dementia with behavioral disturbance Acute F03.91 - UNSPECIFIED DEMENTIA WITH BEHAVIORAL DISTURBANCE Qualifiers: Dementia type: vascular dementia Qualified Code(s): F01.51 - Vascular dementia with behavioral disturbance Comment/Plan: Using Risperdal and PRN Ativan to control agitation. (4) Atrial fibrillation with RVR Chronic I48.91 - UNSPECIFIED ATRIAL FIBRILLATION Comment/Plan: Tolerating metoprolol . (5) HTN (hypertension) Acute I10 - ESSENTIAL (PRIMARY) HYPERTENSION Qualifiers: Hypertension type: essential hypertension Qualified Code(s): I10 - Essential (primary) hypertension Comment/Plan: Will increase dose of metoprolol to 50 mg BID to help control BP better. (6) Heart murmur, aortic Acute I35.8 - OTHER NONRHEUMATIC AORTIC VALVE DISORDERS Comment/Plan: Not previously diagnosed, sounds like aortic stenosis. Echocardiogram was done but suboptimal results were unable to explain patient's rather loud heart murmur. Aortic valve appeared to be normal on recent echo - no other valvular abnormalities were seen either. (7) Agitation Acute R45.1 - RESTLESSNESS AND AGITATION Comment/Plan: Tolerating Risperdal and PRN Ativan to control agitation. Received occasional IM Haldol and soft restraints. This morning, he is more alert, and out of restraints.
[2016-05-05] MEDS ORDERED: ALBUTEROL 0.083% 3 ML NEB NEB PRN (17:04)
[2016-05-05] MEDS: ENOXAPARIN 40 MG/0.4 ML PFS SQ SCH (17:27)
[2016-05-05] MEDS: RISPERIDONE 1 MG TAB PO SCH (19:37)
[2016-05-05] MEDS: TEMAZEPAM 15 MG CAP PO PRN (19:38)
[2016-05-06] MEDS: SODIUM CHLORIDE 0.9% 3 ML FLUSH FLUSH SCH ×2 (04:34→16:52)
[2016-05-06] MEDS: PANTOPRAZOLE 40 MG TAB PO SCH (05:00)
[2016-05-06] MEDS: REGULAR INSULIN 100 UNITS/ML - 3 ML VIAL SQ SCH ×2 (05:37→16:46)
[2016-05-06] MEDS: METOPROLOL TARTRATE 50 MG TAB PO SCH ×2 (08:17→19:39)
[2016-05-06] MEDS: VALSARTAN 160 MG TAB PO SCH (08:17)
[2016-05-06] MEDS: OMEGA-3-ACID ETHYL ESTERS 1000 MG CAP PO SCH (11:04)
[2016-05-06] MEDS: CHOLECALCIFEROL 1000 UNITS TAB PO SCH (11:05)
--- NOTE | 2016-05-06 13:46 | GENMEDPROG ---
Currently: Reports: Other (frustrated and doesn't understand/remember non-weight -bearing status.). Denies: Ambulating DVT Prophylaxis: Yes - Physical Examination Vital Signs and I&O: Last Vital Signs Temp 98.3 F 05/06/16 09:46 Pulse 90 05/06/16 09:46 Resp 18 05/06/16 09:46 BP 142/75 05/06/16 09:46 Pulse Ox 93 05/06/16 09:46 Oxygen Pulse Oxygen Saturation 93 O2 Device Room Air Oxygen Flow Rate Fraction of Inspired Oxygen ( FIO2) Intake & Output 05/03/16 05/04/16 05/05/16 05/06/16 23:59 23:59 23:59 23:59 Intake Total 2774 2833 2951 1370 Output Total 2850 2750 1400 1525 Balance -76 83 1551 -155 Patient's weight 83.178 kg 81.788 kg 82.1 kg 82.724 kg General: Alert, Oriented x3, No acute distress HEENT: Normal, PERRLA, EOMI (Sclera white), Anicteric Sclera, Mucous membr. moist/pink Neck: Normal Trachea alignment, Normal inspection Lymphatics: Normal Respiratory: Normal - CTA Cardiovascular: Regular rate, No Gallops,Rubs/Murmurs GI: Normal bowel sounds, Soft, Non tender (non distended) Extremities/Musculoskeletal: DJD, FROM Skin: Warm,Dry and Intact, No breakdown Neurological: Normal speech, Normal tone, Cranial nerves 3-12 NL Psych/Mental Status: Cooperative, Confused, Disoriented, Drowsy - Assessment (1) Right acetabular fracture Acute S32.401A - UNSP FRACTURE OF RIGHT ACETABULUM, INIT FOR CLOS FX Qualifiers: Encounter type: initial encounter Sublocation of acetabulum: unspecified portion of acetabulum Fracture type: closed Fracture alignment: nondisplaced Qualified Code(s): S32.401A - Unspecified fracture of right acetabulum, initial encounter for closed fracture Comment/Plan: Anterior and posterior wall involved with comminuted fracture. ACETABULAR FRACTURE- continue pain control and control of agitation, then continue physical therapy and non-surgical recovery from fracture. (2) Intractable pain Acute R52 - PAIN, UNSPECIFIED Comment/Plan: DUE TO RIGHT ACETABULAR FRACTURE - admitted for pain control and control of agitation, then placement in rehabilitation center for physical therapy and non-surgical recovery from fracture. (3) Dementia with behavioral disturbance Acute F03.91 - UNSPECIFIED DEMENTIA WITH BEHAVIORAL DISTURBANCE Qualifiers: Dementia type: vascular dementia Qualified Code(s): F01.51 - Vascular dementia with behavioral disturbance Comment/Plan: Using Risperdal and PRN Ativan to control agitation. (4) Atrial fibrillation with RVR Chronic I48.91 - UNSPECIFIED ATRIAL FIBRILLATION Comment/Plan: Tolerating metoprolol . (5) HTN (hypertension) Acute I10 - ESSENTIAL (PRIMARY) HYPERTENSION Qualifiers: Hypertension type: essential hypertension Qualified Code(s): I10 - Essential (primary) hypertension Comment/Plan: Will increase dose of metoprolol to 50 mg BID to help control BP better. (6) Heart murmur, aortic Acute I35.8 - OTHER NONRHEUMATIC AORTIC VALVE DISORDERS Comment/Plan: Not previously diagnosed, sounds like aortic stenosis. Echocardiogram was done but suboptimal results were unable to explain patient's rather loud heart murmur. Aortic valve appeared to be normal on recent echo - no other valvular abnormalities were seen either. (7) Agitation Acute R45.1 - RESTLESSNESS AND AGITATION Comment/Plan: Tolerating Risperdal and PRN Ativan to control agitation.
[2016-05-06] MEDS: NS 1,000 ML IV SCH ×2 (14:30→23:34)
[2016-05-06] MEDS: ENOXAPARIN 40 MG/0.4 ML PFS SQ SCH (16:52)
[2016-05-06] MEDS: TEMAZEPAM 15 MG CAP PO PRN (19:38)
[2016-05-06] MEDS: RISPERIDONE 1 MG TAB PO SCH (19:39)
[2016-05-07] MEDS: LORAZEPAM 2 MG/ML VIAL IV PRN (02:20)
[2016-05-07] MEDS: SODIUM CHLORIDE 0.9% 3 ML FLUSH FLUSH SCH (04:04)
[2016-05-07 05:22] VITALS: BMI 24.8
[2016-05-07] MEDS: REGULAR INSULIN 100 UNITS/ML - 3 ML VIAL SQ SCH (06:19)
[2016-05-07] MEDS: PANTOPRAZOLE 40 MG TAB PO SCH ×2 (06:24)
[2016-05-07] MEDS: VALSARTAN 160 MG TAB PO SCH (08:58)
[2016-05-07] MEDS: NS 1,000 ML IV SCH (08:58)
--- NOTE | 2016-05-07 09:01 | PCM.DCS92 ---
- Final/Secondary Discharge Diagnosis (1) Right acetabular fracture Acute S32.401A - UNSP FRACTURE OF RIGHT ACETABULUM, INIT FOR CLOS FX Present on Admission: Yes initial encounter unspecified portion of acetabulum closed nondisplaced S32.401A - Unspecified fracture of right acetabulum, initial encounter for closed fracture Comment: Anterior and posterior wall involved with comminuted fracture. ACETABULAR FRACTURE- continue pain control and control of agitation, then continue physical therapy and non-surgical recovery from fracture. (2) Intractable pain Acute R52 - PAIN, UNSPECIFIED Present on Admission: Yes Comment: DUE TO RIGHT ACETABULAR FRACTURE- admitted for pain control and control of agitation, then placement in rehabilitation center for physical therapy and non-surgical recovery from fracture. (3) Dementia with behavioral disturbance Acute F03.91 - UNSPECIFIED DEMENTIA WITH BEHAVIORAL DISTURBANCE Present on Admission: Yes vascular dementia F01.51 - Vascular dementia with behavioral disturbance Comment: Using Risperdal and PRN Ativan to control agitation, doing well with this.. (4) Atrial fibrillation with RVR Chronic I48.91 - UNSPECIFIED ATRIAL FIBRILLATION Present on Admission: Yes Comment: Tolerating metoprolol . (5) HTN (hypertension) Acute I10 - ESSENTIAL (PRIMARY) HYPERTENSION Present on Admission: Yes essential hypertension I10 - Essential (primary) hypertension Comment: Increased dose of metoprolol to 50 mg BID to help control BP better. (6) Heart murmur, aortic Acute I35.8 - OTHER NONRHEUMATIC AORTIC VALVE DISORDERS Present on Admission: Yes Comment: Not previously diagnosed, sounds like aortic stenosis. Echocardiogram was done but suboptimal results were unable to explain patient's rather loud heart murmur. Aortic valve appeared to be normal on recent echo - no other valvular abnormalities were seen either. (7) Agitation Acute R45.1 - RESTLESSNESS AND AGITATION Present on Admission: Yes Comment: Tolerating Risperdal and PRN Ativan to control agitation. Discharge Disposition: Alf Facility Discharge Condition: Improved Cognitive Discharge Status: Cognitive deficits prevent decision making for safety., Cognitive Deficits Impact judgement, impair ability to safely navigate Fuctional Discharge Status: Walker Assistance (non-weight bearing on R leg (toe- touch only) for eight weeks), Fall Risk, Inability to drive due to severe medical illness, Deconditioning, Ambulatory Dysfunction, Unable to leave home without assistance Forms: ED Discharge Instructions Physician Follow up/Referrals: Nilesh Leija MD [Primary Care Provider] - F/U Facility Physician New Prescriptions: Albuterol Sulfate [Ventolin] 3 ml NEB Q6H PRN #120 nebu PRN Reason: Wheezing Ca Carbonate/Vitamin D3/Vit K [Calcium + D Soft Chewable Tab] 1 each PO TID # 100 tab.chew Enoxaparin Sodium [Lovenox] 40 mg SQ 1800 #30 pfs Metoprolol Tartrate [Lopressor] 50 mg PO BID #60 tablet Risperidone [Risperdal] 2 mg PO HS #30 tablet Discharge Home Medication List Aspirin (Enteric Coated) [Halfprin] 81 mg PO DAILY 04/29/16 [History Confirmed 04/29/16 Last Taken 04/29/16] Cholecalciferol [Vitamin D3 (cholecalciferol)] 1,000 units PO DAILY 04/29/16 [ History Confirmed 04/29/16 Last Taken 04/29/16] [place]-3 Fatty Acids/Fish Oil [Fish Oil 1,000 mg Softgel] 1 cap PO DAILY [History Confirmed 04/29/16 Last Taken 04/29/16] Omeprazole Magnesium [Prilosec Otc] 20 mg PO DAILY 04/29/16 [History Confirmed 04/29/16 Last Taken 04/29/16] Valsartan/Hydrochlorothiazide [Valsartan-Hctz 160-12.5 mg Tab] 1 tab PO DAILY [History Confirmed 04/29/16 Last Taken 04/29/16] Acetaminophen Tablet [TYLENOL Tablet] 650 mg PO Q6H PRN #100 tablet 05/07/16 [ Rx Last Taken Unknown] Albuterol Sulfate [Ventolin] 3 ml NEB Q6H PRN #120 nebu 05/07/16 [Rx Last Taken Unknown] Ca Carbonate/Vitamin D3/Vit K [Calcium + D Soft Chewable Tab] 1 each PO TID # 100 tab.chew 05/07/16 [Rx Last Taken Unknown] Docusate-Senna Concentrate [Senokot S or Yasmin Colace] 1 tab PO BID PRN #60 tablet 05/07/16 [Rx Last Taken Unknown] Enoxaparin Sodium [Lovenox] 40 mg SQ 1800 #30 pfs 05/07/16 [Rx Last Taken Unknown] Metoprolol Tartrate [Lopressor] 50 mg PO BID #60 tablet 05/07/16 [Rx Last Taken Unknown] Risperidone [Risperdal] 2 mg PO HS #30 tablet 05/07/16 [Rx Last Taken Unknown] O2 Device: Room Air Diet at Discharge: Heart Healthy Activity: As Tolerated Call Office For: Worsening Symptoms Discontinue use of:: Alcohol, All Types of Tobacco - DC Summary Notes Home Health Need / Alf Services:: Patient requires a skilled evaluation for rehabilitation services. To include gait training, transfer training and stair training. Instruction on use of assistive devices for ambulation on all surfaces. Instruct and upgrade home exercise program and therapeutic exercises to increase strength and endurance.Passive and active ROM exercises for strengthening. Recommend home adaptation to facilitate safety. Safety, pain and medication management. Hospital Course Note:: Discharge summary on patient named ISAIAH MARTINEZ admitted to [facility] on 04/29/16 by Leslie Rees MD. Date of discharge is []. Mr Isaiah Martinez is an 85 year old white man who lives at home with his family. He has some mild dementia, but is usually ambulatory and functional. He suffered a fall at home two days ago, and since then is unable to bear weight on his right leg, complaining of severe pain in his right thigh and knee. Initial evaluation did not reveal any fracture. He has become increasingly confused and agitated, and his family can not handle him at home. He has severe intractible pain and is unable to walk. A CT of his pelvis tonight revealed a comminuted fracture of the right acetabulum. Orthopedic consultation was obtained and they recommended non-surgical healing with physical therapy and placement in a rehabilitation center. He is admitted for initial control of his pain and agitation, and to begin physical therapy. He was very agitated on admission, combative and hitting people. However this appeared to be a pain response. We gave dilaudid IV and are using Risperdal and PRN Ativan to control agitation, he is doing well with this. His blood pressure was not well controlled initially, but his dose of metoprolol was increased and his other home medications were continued. Currently his BP is 138/70. He does have intermittent atrial fibrillation, but his rate is well controlled between 80-100. We have kept him anticoagulated with Lovenox because of his extended bedrest. His diabetes is well controlled with diet. Currently he is pleasant and cooperative, although he remains confused and forgetful. We have left a Bright catheter in him because of his inability to ambulate and his tendency to forget, and get easily agitated. He is getting up to a chair at bedside with assistance and can stand to help transfer, with assistance. His pain is being managed with Tylenol. He will need close orthopedic follow-up. He is stable for transfer to a rehabilitation center for continued physical therapy. Code: 67653 (>30min.) - Physical Exam Vital Signs: Last Vital Signs Temp 98.8 F 05/07/16 05:22 Pulse 103 05/07/16 05:22 Resp 18 05/07/16 05:22 BP 138/70 05/07/16 05:22 Pulse Ox 98 05/07/16 05:22 Oxygen Pulse Oxygen Saturation 98 O2 Device Room Air Oxygen Flow Rate Fraction of Inspired Oxygen ( FIO2) Constitutional: No apparent distress, Alert, Confused Oriented to: Person - HEENT Head: Normal Eye: Normal (PERRL; EOMI) Oropharynx: Normal, Other (dentures). negative: Drooling, Exudate, Red Tympanic Membrane: Dull TMJ: Normal Nose: No Symptoms Reported. negative: Bleeding, Congestion, Discharge, Deformity - Respiratory/Cardiovascular Respiratory: Normal - CTA Cardiovascular: Irregular, Systolic murmur - GI Auscultation: Normal Palpation: Normal (soft nondistended, no mass or fluid wave) Tenderness: Non tender Bernabe's Sign: Negative Rectal Exam: Normal, Heme negative stool Stool: Brown - Musculoskeletal Back: Normal Extremities: Other (Examination of the patient's right lower extremity is normal in appearance. No effusion or ecchymosis. He does have reproducible pain with log roll testing and attempts at passive range of motion of the right hip in the groin area. It is significant dementia and confusion patient is unable to elicit the site of his pain. No deformity or rotational, are otherwise is noted. He is able to actively flex and extend the knee and the right ankle. Subjective sensation is intact in all dermatomes of the right foot. He has palpable dorsalis pedis and posterior tibial pulses distally. Other remaining bony prominences of the lower and upper extremities are palpated without tenderness, step-off or deformity.) - Integumentary Skin: Warm, Dry Lymphatics: Normal - Neurologic Memory Impaired: Short-term Motor Function: Normal Cranial Nerve: Normal, 2 (vision impairments), 8 (hearing impairmet) Cerebellar: Normal Mood Description: Anxious Thought: Rambling Conversation Perception: Normal
[2016-05-07] MEDS: METOPROLOL TARTRATE 50 MG TAB PO SCH (09:02)
[2016-05-07 10:30] VITALS: BP 145/71; PULSE 78; TEMP 98
[2016-05-07] MEDS: OMEGA-3-ACID ETHYL ESTERS 1000 MG CAP PO SCH (11:35)
[2016-05-07] MEDS: CHOLECALCIFEROL 1000 UNITS TAB PO SCH (11:36)
[2016-05-07 13:03] LABS: BLOOD UREA NITROGEN 9 MG/DL (9-20); CALCIUM 8.7 MG/DL (8.4-10.2); CALCULATED OSMOLALITY 267 MOs/Kg (270-290); CHLORIDE 104 mEq/L (98-107); GLUCOSE 140 MG/DL (70-99); SODIUM LEVEL 138 mEq/L (137-146)
== END 2016-05-07 14:51 | DRG 536 ==
LOC: ED 15:03 → PCU 22:41 → MPS3 05-01 20:25
PROVIDERS: ADMIT Family Medicine; ATTEND Family Medicine
DX: S32.401A Unspecified fracture of right acetabulum, initial encounter for closed fracture (principal); F01.51 Vascular dementia, unspecified severity, with behavioral disturbance; I48.91 Unspecified atrial fibrillation; W19.XXXA Unspecified fall, initial encounter; I10 Essential (primary) hypertension; I35.8 Other nonrheumatic aortic valve disorders; R45.1 Restlessness and agitation; E11.9 Type 2 diabetes mellitus without complications; K21.9 Gastro-esophageal reflux disease without esophagitis; Z79.82 Long term (current) use of aspirin; Z79.899 Other long term (current) drug therapy
CPT/HCPCS: 36415; 70450; 73502; 80048; 81001; 82962; 83735; 83880; 84484; 85014; 85018; 85025; 85027; 85610; 93005; 93306; 96372; 96374; 99285; E0710; G0237; J1170; J1630; J1650; J1885; J2060; J2550; J3490

== ENCOUNTER 2016-06-09 12:01 | Emergency (ER) | payer MEDICARE ==
[2016-06-09 12:07] VITALS: BP 116/58; PULSE 97; TEMP 97.3
[2016-06-09 12:16] VITALS: BMI 25.6
[2016-06-09 12:29] LABS: AUTOMATED BASOPHIL 0.4 % (0-2); AUTOMATED EOSINOPHIL 3.5 % (0-5); AUTOMATED LYMPH 18.9 % (17-44); AUTOMATED NEUTROPHIL 67.2 % (45-76); MPV 6.9 fL (7.4-10.4)
[2016-06-09 12:40] LABS: PARTIAL THROMB. TIME 28.1 SEC (22-35); PT-INR 1.1
[2016-06-09 12:47] LABS: BLOOD UREA NITROGEN 55 MG/DL (9-20); CALC CORRECTED 10.5 MG/DL (8.4-10.2); CALCIUM 10.4 MG/DL (8.4-10.2); CALCULATED OSMOLALITY 268 MOs/Kg (270-290); CHLORIDE 94 mEq/L (98-107); GLUCOSE 103 mg/dL (70-99); SODIUM LEVEL 131 mEq/L (137-146); TOTAL PROTEIN 7.4 G/DL (6.3-8.2)
--- NOTE | 2016-06-09 13:45 | DIRPT ---
CLINICAL DATA: Left-sided weakness for 3 days. EXAM: CT HEAD WITHOUT CONTRAST TECHNIQUE: Contiguous axial images were obtained from the base of the skull through the vertex without intravenous contrast. COMPARISON: 04/29/2016 FINDINGS: There is atrophy and chronic small vessel disease changes. No acute intracranial abnormality. Specifically, no hemorrhage, hydrocephalus, mass lesion, acute infarction, or significant intracranial injury. No acute calvarial abnormality. Visualized paranasal sinuses and mastoids clear. Orbital soft tissues unremarkable. IMPRESSION: No acute intracranial abnormality. Atrophy, chronic microvascular disease. Electronically Signed By: Harpreet Bernard M.D. On: 06/09/2016 13:43
== END 2016-06-09 13:56 | disposition left against medical advice (07) ==
LOC: ED 12:01
DX: R53.1 Weakness (principal)
CPT/HCPCS: 36415; 70450; 80053; 83880; 84484; 85025; 85610; 85730; 93005

== ENCOUNTER 2016-06-10 14:17 | Emergency (ER) | payer MEDICARE ==
[2016-06-10] MEDS ORDERED: NS 1,000 ML IV ONE (14:25)
--- NOTE | 2016-06-10 14:30 | EDPRACDOC ---
- General Information Stated Complaint: WEAKNESS Time Seen by Provider: 06/10/16 14:22 Information Source: Patient, Undercoater Mode Of Arrival: Ambulance Home Medications: Home Medications Aspirin (Enteric Coated) [Halfprin] 81 mg PO DAILY 04/29/16 Cholecalciferol [Vitamin D3 (cholecalciferol)] 1,000 units PO DAILY 04/29/16 [place]-3 Fatty Acids/Fish Oil [Fish Oil 1,000 mg Softgel] 1 cap PO DAILY Omeprazole Magnesium [Prilosec Otc] 20 mg PO DAILY 04/29/16 Valsartan/Hydrochlorothiazide [Valsartan-Hctz 160-12.5 mg Tab] 1 tab PO DAILY Docusate-Senna Concentrate [Senokot S or Yasmin Colace] 1 tab PO BID PRN #60 tablet 05/07/16 Enoxaparin Sodium [Lovenox] 40 mg SQ 1800 #30 pfs 05/07/16 Metoprolol Tartrate [Lopressor] 50 mg PO BID #60 tablet 05/07/16 Risperidone [Risperdal] 2 mg PO HS #30 tablet 05/07/16 Bethanechol Chloride [Urecholine] 25 mg PO Q6H 06/10/16 Ca Carbonate/Vitamin D3/Vit K [Calcium + D Soft Chewable Tab] 1 tab PO TID 06/10 Ciprofloxacin HCl [Cipro] 250 mg PO .BID X 7D 06/10/16 Citalopram Hydrobromide [Celexa] 20 mg PO QHS 06/10/16 Tamsulosin HCl [Flomax] 0.4 mg PO DAILY 06/10/16 Allergies/Adverse Reactions: Allergies Allergy/AdvReac Type Severity Reaction Status Date / Time morphine Allergy Severe Agitation Verified 06/10/16 14:30 Influenza Virus Vaccines Allergy Unknown Verified 06/10/16 14:30 - History of Present Illness Onset: few days Exact Onset of Symptoms: Unknown HPI: PT BROUGHT HERE BY EMS BECAUSE OF A CHANGE IN MENTAL STATUS. THE PT WAS BROUGHT HERE YESTERDAY BY CAR BY FAMILY. THE TRIAGE NURSE ORDERED A CT FROM THE WAITING ROOM WHICH WAS NEGATIVE. UNFORTUNATELY, PT'S FAMILY BECAME TIRED OF WAITING AND LEFT WITHOUT TREATMENT. THE PT'S FAMILY CALLED EMS. THE FAMILY TOLD EMS THAT WE DID NOT DO ANYTHING YESTERDAY AND SENT HIM HOME WITH A STROKE. PT HAS DEMENTIA AND IS A POOR HISTORIAN. Symptoms began: Gradually Duration: Since Onset Symptoms Currently: Reports: Unchanged Altered Quality: Reports: Decreased Alertness Altered Severity: Reports: Mild, Unable to care for self Relevant History: Reports: Dementia ED Past Medical History - Patient Medical History Neurological History: Reports: Cerebrovascular Accident, Dementia Cardiac History: Reports: Atrial Fibrillation ("FLIP / FLOPPING HEART"), Hypertension, Hypercholesterolemia GI/ History: Reports: Gastroesophageal Reflux Musculoskeletal History: Reports: Arthritis, Osteoarthritis Psychological History: Reports: Anxiety. Denies: Depression Surgical History: Reports: Cholecystectomy - Social Medical History Smoking Status: Never smoker ETOH: None Substance Abuse: None Lives With: Family Lives In: Home EDM Review of Systems - Review of Systems ROS Negative Except as Marked: Yes All systems reviewed and were negative except as marked - Physical Exam Constitutional: Alert (Awake), No apparent distress Oriented to: Person, Place Last recorded Vital Signs: Oxygen Pulse Oxygen Saturation O2 Device Oxygen Flow Rate Fraction of Inspired Oxygen ( FIO2) - HEENT Head: Normal ( normocephalic) Eye Exam: Normal (PERRL, EOMI, Sclera white) Oropharynx: Normal (Pharynx:Moist without exudate,Gums-no swelling) ENT EAC: Normal TMJ: Normal Nose: No Symptoms Reported (septum midline) Neck: Normal (FROM, trachea at midline) - Respiratory/Cardiovascular Respiratory: Normal - CTA (BBS clear to auscultation without adventitious sounds ) Cardiovascular: Normal (RRR without murmur, gallop or rub) - GI Auscultation: Normal (NABS) Palpation: Normal (Soft,No rebound or guarding, non distended) Tenderness: Non tender Bernabe's Sign: Negative - Musculoskeletal Back: Normal (Non-Tender) Extremities: Normal (Normal tone, Pulses 2+ No cyanosis or edema, FROM) - Integumentary Skin: Normal, Warm, Dry Lymphatics: Normal (no adenopathy) - Neurologic Memory Impaired: Short-term, Long-term Motor Function: Normal (Normal tone, Pulses 2+ No cyanosis or edema, FROM) Cranial Nerve: Normal (CN II-X11 intact sensation, strength 5/5) Cerebellar: Normal Mood Description: Normal Thought: Coherent Perception: Normal - Re-evaluation Re-evaluation 1 Re-evaluation Time: 17:12 (PT ABLE TO GET UP WITH WALKER) - Results 06/10/16 15:19 06/10/16 15:19 - EKG EKG #1 EKG Time: 14:32 -: Yes EKG interpreted by me Rate: bpm: 68 [place]: Normal Rhythm: NSR Block: None Hypertrophy: None ST: Normal Comparison: 06/09/16 - Diagnostic Imaging Head Image interpreted by: Radiologist Mild atrophy with mild periventricular small vessel disease. No intracranial mass, hemorrhage, or acute appearing infarct. Chest Image interpreted by: Radiologist No acute abnormality. - Additional Information Additional Information: PT REQUIRES A LOT OF ASSISTANCE WITH WALKER. PT'S DAUGHTER SAID THEY HAVE PEOPLE AT HOME. PT IS ARRANGED FOR HOME. PT HAS HOME HEALTH. Decision Time to Discharge: 17:12 - Departure Yes I personally saw and evaluated the patient. Disposition: Home Condition: Fair Final Diagnosis: Dehydration, Parkinsons Instructions: Dehydration (ED) Education/Counseling Given To: Patient, Family Member Education/Counseling Given Regarding: Diagnosis, Treatment, Follow Up Referrals: Nilesh Leija MD [Primary Care Provider] - One Week Prescriptions: No Action Valsartan/Hydrochlorothiazide [Valsartan-Hctz 160-12.5 mg Tab] 1 tab PO DAILY Omeprazole Magnesium [Prilosec Otc] 20 mg PO DAILY Cholecalciferol [Vitamin D3 (cholecalciferol)] 1,000 units PO DAILY Aspirin (Enteric Coated) [Halfprin] 81 mg PO DAILY [place]-3 Fatty Acids/Fish Oil [Fish Oil 1,000 mg Softgel] 1 cap PO DAILY Docusate-Senna Concentrate [Senokot S or Yasmin Colace] 1 tab PO BID PRN #60 tablet PRN Reason: Constipation - First Option Enoxaparin Sodium [Lovenox] 40 mg SQ 1800 #30 pfs Metoprolol Tartrate [Lopressor] 50 mg PO BID #60 tablet Risperidone [Risperdal] 2 mg PO HS #30 tablet Tamsulosin HCl [Flomax] 0.4 mg PO DAILY Citalopram Hydrobromide [Celexa] 20 mg PO QHS Bethanechol Chloride [Urecholine] 25 mg PO Q6H Ciprofloxacin HCl [Cipro] 250 mg PO .BID X 7D Ca Carbonate/Vitamin D3/Vit K [Calcium + D Soft Chewable Tab] 1 tab PO TID
[2016-06-10 14:35] VITALS: TEMP 97.5; BMI 25.7
--- NOTE | 2016-06-10 14:56 | DIRPT ---
CLINICAL DATA: Altered mental status ; left-sided weakness EXAM: CT HEAD WITHOUT CONTRAST TECHNIQUE: Contiguous axial images were obtained from the base of the skull through the vertex without intravenous contrast. COMPARISON: June 09, 2016 FINDINGS: Mild diffuse atrophy is stable. There is no intracranial mass, hemorrhage, extra-axial fluid collection, or midline shift. 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 There is no new mccall-white compartment lesion. No acute infarct evident. Bony calvarium appears intact. The mastoid air cells are clear. Visualized orbits appear symmetric and unchanged. IMPRESSION: Mild atrophy with mild periventricular small vessel disease. No intracranial mass, hemorrhage, or acute appearing infarct. Electronically Signed By: Dmitry Maharaj III, M.D. On: 06/10/2016 14:53
--- NOTE | 2016-06-10 15:08 | DIRPT ---
CLINICAL DATA: Altered mental status since yesterday. Initial encounter. EXAM: PORTABLE CHEST 1 VIEW COMPARISON: PA and lateral chest 10/17/2010. FINDINGS: Lung volumes are low with some mild basilar atelectasis on the right. No consolidative process, pneumothorax or effusion is identified. Heart size is normal. IMPRESSION: No acute abnormality. Electronically Signed By: Harshad Garcia M.D. On: 06/10/2016 15:05
[2016-06-10 15:37] LABS: AUTOMATED BASOPHIL 0.5 % (0-2); AUTOMATED EOSINOPHIL 4.3 % (0-5); AUTOMATED LYMPH 18.3 % (17-44); AUTOMATED NEUTROPHIL 66.9 % (45-76); MPV 7.4 fL (7.4-10.4)
[2016-06-10 15:51] LABS: PARTIAL THROMB. TIME 29.4 SEC (22-35); PT-INR 1.1
[2016-06-10 15:55] LABS: LEUKOCYTES/URINE NEG (NEGATIVE); NITRITE/URINE NEG (NEGATIVE); RBC/URINE 0-2 (0-2); URINE OCCULT BLOOD NEG (NEG/TRACE)
[2016-06-10 15:57] LABS: BLOOD UREA NITROGEN 51 MG/DL (9-20); CALC CORRECTED 10.2 MG/DL (8.4-10.2); CALCIUM 10.1 MG/DL (8.4-10.2); CALCULATED OSMOLALITY 269 MOs/Kg (270-290); CHLORIDE 96 mEq/L (98-107); GLUCOSE 96 mg/dL (70-99); SODIUM LEVEL 132 mEq/L (137-146)
[2016-06-10 17:27] VITALS: BP 112/67; PULSE 70
== END 2016-06-10 17:15 | disposition home or self-care (01) ==
LOC: ED 14:17
DX: E86.0 Dehydration (principal); G20 Parkinson's disease; F02.80 Dementia in other diseases classified elsewhere, unspecified severity, without behavioral disturbance, psychotic disturbance, mood disturbance, and anxiety; I10 Essential (primary) hypertension; E78.00 Pure hypercholesterolemia, unspecified; K21.9 Gastro-esophageal reflux disease without esophagitis; F41.9 Anxiety disorder, unspecified; I48.91 Unspecified atrial fibrillation; Z79.899 Other long term (current) drug therapy
CPT/HCPCS: 36415; 70450; 71010; 80053; 81001; 83605; 84484; 85025; 85610; 85730; 87040; 93005; 96360; 99284